=== PATIENT | female | born 1975 | race Caucasian/White ===

== ENCOUNTER 2018-08-10 12:25 | Emergency (ER) | payer SELFPAY ==
--- NOTE | 2018-08-10 13:13 | ER Document Report ---
ED Medical Screen (RME) - General Chief Complaint: Seizure Stated Complaint: ETOH WITHDRAWAL Time Seen by Provider: 08/10/18 12:59 Notes: Patient is here for having had multiple seizures throughout the night. Patient has been on a heavy alcohol binge but has not had alcohol for 5 days. She thinks that is the cause of his seizures. She is never had seizures before. She says the seizures occurred off and on throughout the night. Says she bit her tongue. Having pain in the left neck. Patient has smoked some marijuana and believes it was adulterated with some other chemicals or drugs. Her last seizure was around 4:30 AM. Is also has some blurry vision, been confused, feeling weak. Patient has a history of hepatitis C. Is also addicted to opiates, but has not had any for about 3 years. TRAVEL OUTSIDE OF THE [place] IN LAST 30 DAYS: No - Related Data Allergies/Adverse Reactions: levofloxacin [From Levaquin] Allergy (Verified 08/10/18 12:29) Physical Exam - Vital signs Vitals: Temp Pulse Resp BP Pulse Ox 99.0 F 107 H 16 129/82 H 98 08/10/18 12:35 08/10/18 12:35 08/10/18 12:35 08/10/18 12:35 08/10/18 12:35 Course - Vital Signs Vital signs: Temp Pulse Resp BP Pulse Ox 99.0 F 107 H 16 129/82 H 98 08/10/18 12:35 08/10/18 12:35 08/10/18 12:35 08/10/18 12:35 08/10/18 12:35
[2018-08-10 13:56] LABS: ABSOLUTE BASOPHILS # (AUTO) 0.1 10^3/uL (0.0-0.2); ABSOLUTE EOSINOPHILS # (AUTO) 0.1 10^3/uL (0.0-0.6); ABSOLUTE LYMPHOCYTES (AUTO) 2.2 10^3/uL (0.5-4.7); ABSOLUTE MONOCYTES (AUTO) 1.1 10^3/uL (0.1-1.4); ABSOLUTE NEUT (AUTO) 11.1 10^3/uL (1.7-8.2); BASOPHILS % (AUTO) 0.6 % (0-2); EOSINOPHILS % (AUTO) 0.4 % (0-6); HEMATOCRIT 38.2 % (36.0-47.0); HEMOGLOBIN 13.5 g/dL (12.0-15.5); LYMPHOCYTES % (AUTO) 15.1 % (13-45); MEAN CORPUSCULAR HEMOGLOBIN 32.7 pg (27.0-33.4); MEAN CORPUSCULAR HGB CONC 35.3 g/dL (32.0-36.0); MEAN CORPUSCULAR VOLUME 93 fl (80-97); MONOCYTES % (AUTO) 7.8 % (3-13); PLATELET COUNT 293 10^3/uL (150-450); RED BLOOD COUNT 4.12 10^6/uL (3.72-5.28); RED CELL DISTRIBUTION WIDTH 13.9 % (11.5-14.0); SEGMENTED NEUTROPHILS % (AUTO) 76.1 % (42-78); TOTAL CELLS COUNTED % (AUTO) 100 %; WHITE BLOOD COUNT 14.6 10^3/uL (4.0-10.5)
[2018-08-10 14:02] LABS: APPEARANCE,URINE SLIGHTLY-CLOUDY; BILIRUBIN,URINE NEGATIVE (NEGATIVE); COLOR,URINE YELLOW; GLUCOSE, URINE NEGATIVE (NEGATIVE); KETONES,URINE NEGATIVE (NEGATIVE); LEUKOCYTE ESTERASE,URINE NEGATIVE (NEGATIVE); NITRITE,URINE NEGATIVE (NEGATIVE); PROTEIN,URINE NEGATIVE (NEGATIVE); URINE SPECIFIC GRAVITY 1.019; UROBILINOGEN,URINE NEGATIVE mg/dL (<2.0)
[2018-08-10 14:09] LABS: ALANINE AMINOTRANSFERASE 42 U/L (9-52); ALBUMIN 4.6 g/dL (3.5-5.0); ALKALINE PHOSPHATASE 55 U/L (38-126); ANION GAP 9 (5-19); ASPARTATE AMINO TRANSFERASE 112 U/L (14-36); BILIRUBIN,DIRECT 0.2 mg/dL (0.0-0.4); BLOOD UREA NITROGEN 10 mg/dL (7-20); CALCIUM 9.2 mg/dL (8.4-10.2); CARBON DIOXIDE 28 mmol/L (22-30); CHLORIDE 101 mmol/L (98-107); GLUCOSE 116 mg/dL (75-110); LIPASE 43.9 U/L (23-300); SODIUM 137.5 mmol/L (137-145); TOTAL PROTEIN 7.8 g/dL (6.3-8.2)
[2018-08-10 14:10] LABS: ALCOHOL < 10 mg/dL (NONE DETECTED)
[2018-08-10 14:12] LABS: POTASSIUM 2.9 mmol/L (3.6-5.0)
--- NOTE | 2018-08-10 14:13 | RADIOLOGY REPORT (SQ) ---
EXAM DESCRIPTION: CT HEAD WITHOUT COMPLETED DATE/TIME: 08/10/2018 1:51 pm REASON FOR STUDY: Multiple seizures, hit head COMPARISON: None. TECHNIQUE: Axial images acquired through the brain without intravenous contrast. Images reviewed wi th bone, brain and subdural windows. Additional sagittal and coronal reconstructions were generated. Images stored on PACS. All CT scanners at this facility use dose modulation, iterative reconstruction, and/or weight based d osing when appropriate to reduce radiation dose to as low as reasonably achievable (ALARA). [facility]: Dose Right [facility]: CareDose [facility]: Dose Right [facility]: Teradose 4D [facility]: Smart [employer] RADIATION DOSE: CT Rad equipment meets quality standard of care and radiation dose reduction techniq ues were employed. CTDIvol: 53.2 mGy. DLP: 1017 mGy-cm. mGy. LIMITATIONS: None. FINDINGS: VENTRICLES: Normal size and contour. CEREBRUM: No masses. No hemorrhage. No midline shift. No evidence for acute infarction. Normal gra y/white matter differentiation. No areas of low density in the white matter. CEREBELLUM: No masses. No hemorrhage. No alteration of density. No evidence for acute infarction. EXTRAAXIAL SPACES: No fluid collections. No masses. ORBITS AND GLOBE: No intra- or extraconal masses. Normal contour of globe without masses. CALVARIUM: No fracture. PARANASAL SINUSES: No fluid or mucosal thickening. SOFT TISSUES: No mass or hematoma. OTHER: No other significant finding. IMPRESSION: NO ACUTE INTRACRANIAL IMAGING FINDINGS. EVIDENCE OF ACUTE STROKE: NO. COMMENT: Quality ID # [id number]: Final reports with documentation of one or more dose reduction techniques (e.g., Automated exposure control, adjustment of the mA and/or kV according to patient size, use of iterative reconstruction technique) TECHNICAL DOCUMENTATION: JOB ID: [id number] [email or web address]- All Rights Reserved Reading location - IP/workstation name: [email or web address]
--- NOTE | 2018-08-10 14:15 | RADIOLOGY REPORT (SQ) ---
EXAM DESCRIPTION: CT CERVICAL SPINE WITHOUT COMPLETED DATE/TIME: 08/10/2018 1:51 pm REASON FOR STUDY: Multiple seizures, falls, neck pain COMPARISON: None. TECHNIQUE: Axial images acquired through the cervical spine without intravenous contrast. Images re viewed with lung, soft tissue and bone windows. Reconstructed coronal and sagittal MPR images review ed. Images stored on PACS. All CT scanners at this facility use dose modulation, iterative reconstruction, and/or weight based d osing when appropriate to reduce radiation dose to as low as reasonably achievable (ALARA). [facility]: Dose Right [facility]: CareDose [facility]: Dose Right [facility]: Teradose 4D [facility]: Smart [employer] RADIATION DOSE: CT Rad equipment meets quality standard of care and radiation dose reduction techniq ues were employed. CTDIvol: 18.2 mGy. DLP: 329 mGy-cm. mGy. LIMITATIONS: None. FINDINGS: ALIGNMENT: Anatomic. MINERALIZATION: Normal. VERTEBRAL BODIES: No fractures or dislocation. DISCS: Mild multilevel disc degenerative disease. FACETS, LATERAL MASSES, POSTERIOR ELEMENTS: No fractures. No dislocation. No acute findings. HARDWARE: None in the spine. VISUALIZED RIBS: No fractures. LUNG APICES AND SOFT TISSUES: No significant or acute findings. OTHER: No other significant finding. IMPRESSION: No fracture or static subluxation of the cervical spine. Mild multilevel disc degenerat tyson disease. TECHNICAL DOCUMENTATION: JOB ID: [id number] Quality ID # [id number]: Final reports with documentation of one or more dose reduction techniques (e.g., Au tomated exposure control, adjustment of the mA and/or kV according to patient size, use of iterative reconstruction technique) 2010 [employer]- All Rights Reserved Reading location - IP/workstation name: [email or web address]
[2018-08-10 14:19] LABS: URINE BARBITURATES SCREEN NEGATIVE; URINE BENZODIAZEPINES SCREEN NEGATIVE; URINE COCAINE SCREEN NEGATIVE; URINE MARIJUANA (THC) SCREEN NEGATIVE; URINE METHADONE SCREEN NEGATIVE; URINE PHENCYCLIDINE SCREEN NEGATIVE
--- NOTE | 2018-08-10 14:22 | EKG REPORT ---
SEVERITY:- DEFECTIVE ECG - BORDERLINE PROLONGED QT INTERVAL BASELINE ARTIFACT.PROBABLE SINUS RHYTHM.REPEAT EKG : Confirmed by: Stephanie Moise MD 10-Aug-2018 14:22:31
--- NOTE | 2018-08-10 14:22 | ER Document Report ---
Addendum entered and electronically signed by ALAINA CORRALES 09/21/18 14:01: Scribe Documentation - Scribe Written by Scribe:: Alaina Corrales acting as scribe for :: Place Addendum entered and electronically signed by BAILEY MAURICIO LCSWA 08/11/18 09:24: Discharge - Discharge Clinical Impression: Alcohol abuse Condition: Stable Disposition: HOME, SELF-CARE Additional Instructions: You have been evaluated both medical and behavioral health teams and been deemed appropriate for discharge. You are highly encouraged to follow-up with outpatient substance abuse treatment. You have been provided resources for both inpatient, residential, detox and mobile crisis contact information. Is recommended you contact [facility], mobile crisis, for continued assistance in obtaining substance abuse treatment upon discharge. ACUTE ALCOHOL INTOXICATION and ALCOHOL ABUSE: Your evaluation revealed very high levels of alcohol. You can from drinking a large amount of alcohol rapidly! Further, there's the risk of falls, traffic accidents, and fights. A high portion (about 50 percent) of the serious injuries seen in hospital emergency rooms are caused by alcohol. Alcohol overdosage is usually due to an underlying emotional or psychiatric problem. You may benefit from counselling. If "binge" drinking is an ongoing problem for you, or if you drink ANY AMOUNT of alcohol EVERY day, you most likely have a tendency to alcoholism. You should avoid alcohol totally. We can refer you for treatment. Persons with alcohol problems are often also prone to other addictions -- you should discuss any use of medications or drugs with the doctor. You should be watched at home for the next several hours by someone who has not been drinking. Get extra fluids for the next 24 hours. Call the doctor if there is repeated vomiting, increasing headache, decreasing level of alertness, or any other worsening. CHRONIC ALCOHOLISM and ALCOHOL ABUSE: Your evaluation reveals evidence of chronic alcoholism, an addiction to alcohol. The tendency to alcoholism may be inherited. Chronic use of alcohol weakens muscles, causes fatty deposits in the liver, damages the stomach, makes you more prone to infections, and can cause defects in unborn children. In the long run, brain atrophy and cirrhosis of the liver result. You are also at greater risk for certain types of cancer, such as cancer of the mouth, throat, stomach, and liver. Counselling services are available to help you. In-hospital treatment programs often help. Support groups such as Alcoholics Anonymous can be very useful in beating this addiction. Your physician can make a referral for you. As alcoholics often are prone to other addictions, you should discuss your use of any other medications with the doctor. ALCOHOL WITHDRAWAL: Your symptoms are caused by alcohol withdrawal. After a period of frequent drinking, the brain and body are changed by the alcohol. When you quit or reduce your drinking, the nervous system becomes unstable. Withdrawal symptoms can start a few hours after your last drink, but sometimes don't begin until a couple of days later. Symptoms can include shakiness, sweating, insomnia, nause a, vomiting, fearfulness, hallucinations, and seizures. In addition to the acute effects of alcohol withdrawal, we often have to deal with the medical effects of alcoholism. These problems often include dehydration, stomach irritation, intestinal bleeding, low blood sugar, liver disease, and pancreas inflammation. Treatment for alcohol withdrawal includes mild sedatives, vitamins, and fl uids. You need to be with someone who can help if symptoms become severe. Many patients can withdraw at home. Admission to the hospital or a detox facility may be necessary if withdrawal symptoms are severe and uncontrollable. Abstaining from alcohol is the only effective long-term treatment. If you start drinking again, you will not be able to control yourself after the first drink. Treatment programs are available. In addition, many alcoholics benefit from Alcoholics Anonymous or other support groups available through your counselor or [employer]. [facility]ON and ALA[facility]TE[facility] are support groups for friends and family members of an alcoholic. Go to the emergency room if you develop persistent vomiting, severe abdominal pain, fever, shortness of breath, hallucinations, uncontrollable tremors, or seizures. AMPHETAMINE / METHAMPHETAMINE ABUSE: Amphetamines are addicting stimulants. Amphetamines overstimulate the nervous system and give a false feeling of power and mastery. These drugs may be obtained as prescription pills for weight loss, narcolepsy, or attention-deficit disorder. More often they're bought as an illegal street drug, methamphetamine (crank, crystal, speed). Using amphetamines repeatedly can lead to serious medical problems includi ng malnutrition, severe depression, and paranoia. It can take increasing amounts to feel good. Eventually, there will be a "burn out." When you go off amphetamines there is a period of depression that may last for weeks or even months. High doses of amphetamines can cause seizures, confusion, hallucinations, delusions, high blood pressure, muscle damage, heart damage, or sudden . Many times these deadly complications occur even with "normal" doses. Injection of amphetamines is risky for developing abscesses, endocarditis (heart infection), pneumonia, and AIDS. Withdrawal from amphetamines often causes anxiety, depression, and drug cravings. Some users become paranoid and psychotic. There may be cramps, nausea, and vomiting. Many treatment programs are available, but you must make the decision to quit. Medication can be prescribed to control the symptoms of amphetamine toxicity (beta blockers or benzodiazepines). Withdrawal symptoms may require tranquilizers. FOLLOW-UP CARE: If you experience worsening or a significant change in your sym ptoms, notify the physician immediately or return to the Emergency Department at any time for re-evaluation. Referrals: [facility] [Outside] - 08/11/18 Original Note: ED General - General Mode of Arrival: Ambulatory Information source: Patient TRAVEL OUTSIDE OF THE [place] IN LAST 30 DAYS: No <TOYA MELO - Last Filed: 08/10/18 18:37> <KATIANA KIM - Last Filed: 08/11/18 00:59> - General Chief Complaint: Seizure Stated Complaint: ETOH WITHDRAWAL Time Seen by Provider: 08/10/18 12:59 Notes: Patient is a 43-year-old female who presents to the emergency department with multiple complaints. Patient reports that she has a history of both drug and alcohol abuse. She states that she has been clean and sober from drugs for approximately 3 years. States she is to have an opiate addiction. She reports that over the last 3 months she has been binge drinking every day. She reports her last drink was on . Patient reports that she had a seizure last night. She denies any witnesses to this. She reports that she had a headache and sudden jerking movements throughout her body. She states that she blacked out during this. She reports that this morning some friends/neighbors broke down her door and found her asleep on the ground. Patient reports history of bi polar disorder, anxiety, depression and PTSD. She states that she was then incarcerated for many years and has not gotten back on any of her medications. Patient denies any history of seizures. (TOYA MELO) - Related Data Allergies/Adverse Reactions: levofloxacin [From Levaquin] Allergy (Verified 08/10/18 12:29) Past Medical History - General Information source: Patient - Social History Smoking Status: Current Every Day Smoker Frequency of alcohol use: Heavy Drug Abuse: None Family History: Reviewed & Not Pertinent Patient has suicidal ideation: No Patient has homicidal ideation: No Renal/ Medical History: Denies: Hx Peritoneal Dialysis Psychiatric Medical History: Reports: Hx Anxiety, Hx Bipolar Disorder - manic, Hx Depression, Hx Post Traumatic Stress Disorder Past Surgical History: Reports: Hx Breast Surgery, Hx Cardiac Catheterization - 2015 - Immunizations Immunizations up to date: No <TOYA MELO Elias - Last Filed: 08/10/18 18:37> Review of Systems - Review of Systems Constitutional: Weakness EENT: Blurred vision, Throat pain Cardiovascular: Heart racing, Dizziness Respiratory: Cough Gastrointestinal: denies: Abdominal pain, Diarrhea, Nausea, Vomiting Musculoskeletal: Muscle pain Skin: No symptoms reported Hematologic/Lymphatic: No symptoms reported Neurological/Psychological: Anxiety, Headaches <ORACIO MELONorma Griffin - Last Filed: 08/10/18 18:37> Physical Exam <TOYA MELO Elias - Last Filed: 08/10/18 18:37> - Vital signs Vitals: Temp Pulse Resp BP Pulse Ox 99.0 F 107 H 16 129/82 H 98 08/10/18 12:35 08/10/18 12:35 08/10/18 12:35 08/10/18 12:35 08/10/18 12:35 - Notes Notes: PHYSICAL EXAMINATION: GENERAL: Well-nourished and in no acute distress. HEAD: Atraumatic, normocephalic. EYES: Pupils equal round and reactive to light, extraocular movements intact, conjunctiva are normal. ENT: Nares patent, oropharynx clear without exudates. Moist mucous membranes. NECK: Normal range of motion, supple without lymphadenopathy LUNGS: Breath sounds clear to auscultation bilaterally and equal. No wheezes rales or rhonchi. HEART: Regular rate and rhythm without murmurs ABDOMEN: Soft, nontender, nondistended abdomen. No guarding, no rebound. No masses appreciated. Female : No CVA tenderness. Musculoskeletal: Normal range of motion, no pitting or edema. No cyanosis. NEUROLOGICAL: Cranial nerves grossly intact. Normal speech, normal gait. Normal sensory, motor exams PSYCH: Anxious. SKIN: Warm, Dry, normal turgor, no rashes or lesions noted. (TOYA MELO) Course - Laboratory Result Diagrams: 08/10/18 13:34 08/10/18 13:34 <TOYA MELO - Last Filed: 08/10/18 18:37> - Laboratory Result Diagrams: 08/10/18 13:34 08/10/18 23:14 <KATIANA KIM - Last Filed: 08/11/18 00:59> - Re-evaluation Re-evalutation: 08/10/18 14:15 Nursing staff came and reported that patient has a potassium of 2.9. Patient will be moved to the main side so she can be placed on a cafeteria monitor. I will place an order for a magnesium level to be checked. 08/10/18 15:00 Patient is very anxious with tremors and hyperactivity. Will order Ativan IV 2 mg while patient awaiting main side bed. 08/10/18 15:19 Magnesium is 2.2. Will order potassium replacement. Patient is updated on the plan of care. Imaging studies are negative to include head CT, cervical spine CT and chest x-ray. 08/10/18 16:39 Patient is slightly calmer after receiving IV Ativan. Patient's urine drug screen came back with amphetamines, too high to appropriately calculate. At the bedside patient is now reporting that she thinks she did some drugs last night. She endorses smoking marijuana that was laced with Shama. Then she states that she "ate some rocks" that were provided by the same dealer. Patient's daughter is at bedside states that patient has a long history of drug and alcohol abuse. Reports that she has been clean from drugs for approximately 5 years, but has been drinking daily for the last 3 months. Patient does not have any evidence of IV drug abuse, no track white. Patient does have multiple bruises scattered throughout her bilateral arms. Patient denies any pain. Physical examination is unremarkable and patient's abdomen is soft and nontender. Patient mildly tachycardic with a heart rate of 103, blood pressure 133/80, SPO2 97% on room ai r, respiratory rate of 18. Patient receiving IV potassium replacement, will also order p.o. potassium replacement. We will plan to recheck potassium in a few hours. 08/10/18 18:37 Psychiatric team evaluated the patient and has placed patient on IVC papers pending repeat evaluation in the morning. Patient not able to actively participate as she still appears to be under the influence of some type of substance. 08/10/18 19:05 Bedside handoff given to assess Katiana PINON. Plan to recheck potassium at 2100. (TOYA MELO) 08/10/18 19:30 I received bedside report from KATHRIN Gleason. Will await potassium recheck and patient will be medically discharged for mental health evaluation. 08/10/18 22:30 I have been informed by patient's primary nurse that the specimen that was drawn to recheck her potassium had hemolyzed. 08/11/18 00:57 Patient's potassium is 4.3. She is medically stable for mental health evaluation. She will be evaluated by Dr. Solis in the morning and closely monitored with a sitter. (KATIANA KIM) - Vital Signs Vital signs: Temp Pulse Resp BP Pulse Ox 99.0 F 107 H 37 H 113/70 93 08/10/18 12:35 08/10/18 12:35 08/10/18 19:00 08/10/18 18:01 08/10/18 19:00 - Laboratory Laboratory results interpreted by me: 08/10/18 08/10/18 08/10/18 13:34 13:34 23:14 WBC 14.6 H Absolute Neutrophils 11.1 H Sodium 136.8 L Potassium 2.9 L* Chloride 110 H Glucose 116 H AST 112 H
--- NOTE | 2018-08-10 14:22 | RADIOLOGY REPORT (SQ) ---
EXAM DESCRIPTION: CHEST 2 VIEWS COMPLETED DATE/TIME: 08/10/2018 1:58 pm REASON FOR STUDY: Multiple seizures COMPARISON: None. EXAM PARAMETERS: NUMBER OF VIEWS: two views TECHNIQUE: Digital Frontal and Lateral radiographic views of the chest acquired. RADIATION DOSE: NA LIMITATIONS: none FINDINGS: LUNGS AND PLEURA: No opacities, masses or pneumothorax. No pleural effusion. MEDIASTINUM AND HILAR STRUCTURES: No masses or contour abnormalities. HEART AND VASCULAR STRUCTURES: Heart normal size. No evidence for failure. BONES: Gentle scoliosis of the thoracolumbar spine. HARDWARE: None in the chest. OTHER: No other significant finding. IMPRESSION: No acute abnormality of the lungs. TECHNICAL DOCUMENTATION: JOB ID: [id number] [employer]- All Rights Reserved Reading location - IP/workstation name: [email or web address]
[2018-08-10] MEDS ORDERED: LORAZEPAM INJ 2 MG/1 ML VIAL IV ONE (15:00)
[2018-08-10] MEDS: POTASSI CL 20 MEQ/50 ML RIDER 20 MEQ/50 ML RTUPB IV SCH ×2 (16:20→18:12)
[2018-08-10] MEDS ORDERED: POTASSIUM CHLORIDE 10 MEQ CAPSULE.ER PO ONE (16:38)
--- NOTE | 2018-08-10 18:23 | PSYCHOLOGICAL NOTE ---
Psych Note - Psych Note Date seen by psych provider: 08/10/18 Time seen by psych provider: 18:00 Psych Note: Patient is a 43 yo female presenting to the ED with concerns of having a seizure and blurry vision. Chart review shows no prior mental health visits. There is a S/A hx of heroin dependence and ETOH relapse 2 months ago with patient detoxing on her own for the last 5 days. Patient's toxicology is negative for all substances. However, patient is reporting some AV/H, that she smoked marijuana two days ago and that she thinks she took a sascha. She is drowsy, nodding off and not finishing her sentences. Her speech is slurred and her head lolls back and forth. Patient was drowsy and oriented x 4. Mood was confused with sleepy affect. Patient denied SI, HI, and endorsed AV/H though was unable to explain what she was or had experienced. She does not appear to be responding to internal stimuli and no delusions were noted. Thought processes were disorganized. Conversational speech was soft, slurred. Eye contact was poor. Intellectual abilities were estimated within the average range. Immediate and remote memory was poor. Attention and concentration was poor, while insight, judgment, and impulse control was poor. Diagnosis 291.81 Alcohol Withdrawal Impression/Plan Recommendation is to IVC for risk of harm to self due to AMS with plan to hold overnight for further observation and re-evaluate at a later time.
[2018-08-10 23:36] LABS: ANION GAP 5 (5-19); BLOOD UREA NITROGEN 11 mg/dL (7-20); CALCIUM 8.8 mg/dL (8.4-10.2); GLUCOSE 81 mg/dL (75-110)
[2018-08-10 23:53] LABS: CARBON DIOXIDE 22 mmol/L (22-30); CHLORIDE 110 mmol/L (98-107); SODIUM 136.8 mmol/L (137-145)
[2018-08-10 23:55] LABS: POTASSIUM 4.2 mmol/L (3.6-5.0)
--- NOTE | 2018-08-11 09:44 | ER Document Report ---
Doctor's Note Notes: 08/11/18 09:42 Patient evaluated and resting comfortably. She is in no acute distress. She has remained hemodynamically stable throughout the night. Patient states she believes she took mildly which is why she tested positive for amphetamines. She also states that she thought she was smoking marijuana however there is no marijuana in her system. Her symptoms may have been related to ingesting a synthetic drug like spice. She has not had any further seizure activity. Patient will be referred [facility] for substance abuse treatment. She denies homicidal or suicidal ideation. She states she wants to get help and is feeling much better. Patient's daughter willing to pick her up and assist. Patient is stable at time of discharge.
[2018-08-11 10:16] VITALS: BP 113/73
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
== END 2018-08-11 10:27 | disposition home or self-care (01) ==
LOC: ER 12:25
DX: F10.239 Alcohol dependence with withdrawal, unspecified (principal); F41.9 Anxiety disorder, unspecified; F17.200 Nicotine dependence, unspecified, uncomplicated; S40.022A Contusion of left upper arm, initial encounter; S40.021A Contusion of right upper arm, initial encounter; X58.XXXA Exposure to other specified factors, initial encounter; H53.8 Other visual disturbances; R07.0 Pain in throat; R42 Dizziness and giddiness; R05 Cough; M79.10 Myalgia, unspecified site; R00.0 Tachycardia, unspecified; R53.1 Weakness; M54.2 Cervicalgia; R56.9 Unspecified convulsions; Z88.1 Allergy status to other antibiotic agents; R51 Headache
CPT/HCPCS: 93005; 99285; 96375; 96365; 96366; 36415; 80307 ×2; 83690; 83735; 84703; 85025; 80048; 80053; 81001; 71046; 70450; 72125; 93010; J2060; J3480